=== PATIENT | male | born 1975 | race Caucasian/White ===

== ENCOUNTER 2016-12-02 00:11 | Emergency (ER) | payer OTHER ==
--- NOTE | 2016-12-02 01:52 | ED ---
Magaly Jones Alfonso, scribed for Shagufta Lauren MD on 12/02/16 at 0148 . Substance Abuse/Use - HPI Summary HPI Summary: This patient is a 38 year old M BIBA to [facility] with a chief complaint of a reported opiate overdose earlier tonight. The pt was given 2 doses of narcan per report by EMS - these doses were given by a friend. Pt without any complaints but did have episode of vomiting in the ED. PtThe patient rates the pain 0/10 in severity. Symptoms aggravated by stress. Pt states has a h/o substance use but can not report what he took tonight. Pt did not recall how he got to the ED tonight - no recollection of EMS. He admits to using ETOH. He states I use everything in regards to drugs. Patients medication reviewed this visit. - History Of Current Complaint Chief Complaint: EDOverdose Stated Complaint: OVERDOSE Time Seen by Provider: 12/02/16 00:52 Hx Obtained From: Patient Overdose Characteristics: Oral Timing Of Abuse: Intermittent Severity Initially: Moderate Severity Currently: Mild Character: Other - embarrased Alleviating Factor(s): Medication - Narcan per report Associated Signs And Symptoms: Negative - Allergies/Home Medications Allergies/Adverse Reactions: Allergies Allergy/AdvReac Type Severity Reaction Status Date / Time No Known Allergies Allergy Verified 12/02/16 02:55 Home Medications: Home Medications NK [No Home Medications Reported] 12/02/16 [History Confirmed 12/02/16] PMH/Surg Hx/FS Hx/Imm Hx Previously Healthy: Yes Opthamlomology History: Denies: Hx Legally Blind EENT History: Denies: Hx Deafness Infectious Disease History: No Infectious Disease History: Denies: Traveled Outside the [place] in Last 30 Days - Family History Known Family History: Negative: Cardiac Disease, Diabetes - Social History Occupation: Unemployed Lives: With Family Alcohol Use: Weekly Hx Substance Use: Yes Hx Tobacco Use: Yes Review of Systems Constitutional: Negative Eyes: Negative ENT: Negative Cardiovascular: Negative Positive: Vomiting, Nausea Genitourinary: Negative Skin: Negative Neurological: Negative Psychological: Normal All Other Systems Reviewed And Are Negative: Yes Physical Exam Triage Information Reviewed: Yes Vital Signs On Initial Exam: Initial Vitals Temp Pulse Resp BP Pulse Ox 97.6 F 84 18 133/97 96 12/02/16 00:25 12/02/16 00:25 12/02/16 00:25 12/02/16 00:25 12/02/16 00:25 Vital Signs Reviewed: Yes Appearance: Positive: Well-Appearing, No Pain Distress, Well-Nourished Skin: Positive: Warm, Skin Color Reflects Adequate Perfusion, Dry Eyes: Positive: Normal, Conjunctiva Clear ENT: Positive: Hearing grossly normal Neck: Positive: Supple Respiratory/Lung Sounds: Positive: Clear to Auscultation, Breath Sounds Present , Decreased Breath Sounds Cardiovascular: Positive: Normal, RRR. Negative: Murmur Abdomen Description: Positive: Nontender, No Organomegaly, Soft Bowel Sounds: Positive: Present Musculoskeletal: Positive: Normal Neurological: Positive: Normal, Sensory/Motor Intact, Alert, Oriented to Person Place, Time Psychiatric: Positive: Normal AVPU Assessment: Alert - [place] Coma Scale Best Eye Response: 4 - Spontaneous Best Motor Response: 6 - Obeys Commands Best Verbal Response: 5 - Oriented Diagnostics - Vital Signs Vital Signs Temp Pulse Resp BP Pulse Ox 12/02/16 00:25 97.6 F 84 18 133/97 96 - Laboratory Lab Statement: Any lab studies that have been ordered have been reviewed, and results considered in the medical decision making process. Re-Evaluation - Re-Evaluation First Eval Re-Evaluation Time: 03:39 Change: Improved Comment: Patient's niece is present. She agrees to take him home. He is no longer vomiting and reports feeling much better. tolerating po Course/Dx - Course Assessment/Plan: Pt presents after report of narcan wake-up by bystander prior to EMS arrival. Pt with nausea and vomiting but no other complaints,. 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 Pt without any complaint of pain or injury - Diagnoses Provider Diagnoses: Opiate overdose Discharge - Discharge Plan Condition: Improved Disposition: HOME Patient Education Materials: Narcotic Abuse (ED), Opioid Overdose (ED) Referrals: [facility] [Outside] [facility] [Outside] Additional Instructions: - Contact your primary doctor in the [facility] tomorrow You have been given a resource if you desire help for your substance abuse The documentation as recorded by the Magaly fowler Alfonso accurately reflects the service I personally performed and the decisions made by me, Shagufta Lauren MD.
[2016-12-02] MEDS ORDERED: Ondansetron INJ* 2 MG/ML VIAL IV ONE (02:51)
[2016-12-02] MEDS ORDERED: Ondansetron INJ* 2 MG/ML VIAL ONE (02:52)
[2016-12-02 04:16] VITALS: BP 137/86
== END 2016-12-02 04:18 | disposition home or self-care (01) ==
LOC: ED 00:11
DX: T40.601A Poisoning by unspecified narcotics, accidental (unintentional), initial encounter (principal); Y92.9 Unspecified place or not applicable; R11.2 Nausea with vomiting, unspecified
CPT/HCPCS: 96374; 99284; J2405